=== PATIENT | male | born 1985 | race Asian ===

== ENCOUNTER 2017-06-27 20:53 | Emergency (ER) | payer SELFPAY ==
[~2017-06-27] VITALS: Ht 170.2 cm; Wt 78.9 kg
[2017-06-27 21:08] VITALS: Ht 170.2 cm; Wt 78.9 kg
[2017-06-28 00:05] LABS: BASOPHIL % 0.1 % (0-2); PLATELET COUNT 200 x10^3mcL (130-400); RED CELL DISTRIBUTION WIDTH 12.1 % (11.5-14.5)
[2017-06-28 00:08] LABS: CALCIUM 8.4 mg/dL (8.5-10.1); CARBON DIOXIDE 27.6 mmol/L (21-32); CHLORIDE SERUM 103 mmol/L (98-107); GFR1 > 60 mL/min; GLUCOSE SERUM 105 mg/dL (74-106); POTASSIUM SERUM 3.7 mmol/L (3.5-5.1); SODIUM SERUM 140 mmol/L (136-145)
[2017-06-28 00:12] LABS: ALBUMIN 3.8 g/dL (3.4-5.0); ALKALINE PHOSPHATASE 66 U/L (46-116); ALT/SGPT 22 U/L (16-63); AMYLASE 50 U/L (25-115); AST/SGOT 12 U/L (15-37); BILIRUBIN TOTAL 0.4 mg/dL (0.20-1.00); LIPASE 105 IU/L (73-393); TOTAL PROTEIN, SERUM 6.8 g/dL (6.4-8.2)
[2017-06-28 01:52] LABS: FREE T4 1.01 ng/dL (0.76-1.46); FREE THYROXINE INDEX 2.7 ug/dL (1.4-4.5); T4(THYROXINE) 8.3 ug/dL (4.7-13.3)
[2017-06-28 02:07] LABS: CHOLESTEROL/HDL RATIO 4.6; MAGNESIUM 1.7 mg/dL (1.8-2.4); PHOSPHOROUS 2.9 mg/dL (2.5-4.9)
[2017-06-28 02:13] LABS: T3 TOTAL 1.24 ng/mL
[2017-06-28 02:54] VITALS: BP 97/61
[2017-06-28 02:56] LABS: UA SPECIFIC GRAVITY >=1.030 (1.005-1.035); microscopic required? YES; urine erythrocyte NEGATIVE (NEGATIVE)
[2017-06-28 03:01] LABS: AMPHETAMINE QUAL UR NONE DETECTED (NEG <=1000)
== END 2017-06-28 03:05 | disposition left against medical advice (07) ==
LOC: ED 20:53 → DU 06-28 00:56 → ED 06-28 03:05
PROVIDERS: Family Medicine; Specialist
DX: K35.80 Unspecified acute appendicitis (principal)
CPT/HCPCS: 83880; 84439; J0696; J1885; J2405; J3010; J3490; J7030; Q0092